=== PATIENT | male | born 1940 | race Caucasian/White ===

== ENCOUNTER → 2018-06-22 10:56 | Outpatient (CLI) | payer MEDICARE, SELFPAY ==
[2015-09-18 15:25] VITALS: BMI 30.3
[2018-06-22 12:34] LABS: Absolute Lymphocyte Count 1.27 X10^3/ul (0.83-4.51); Absolute Neutrophil Count 3.8 X10^3/uL (2.0-7.7); Basophil# 0.03 X10^3/uL; Basophil% 0.5 % (0-1); Eosinophil# 0.09 X10^3/uL; Eosinophils% 1.5 % (0-5); Hematocrit 41.9 % (40-54); Hemoglobin 14.2 g/dl (13.0-16.5); Lymphocyte # 1.27 X10^3/ul (4.0); Lymphocyte % 21.5 % (19-41); Mean Corp Hgb Conc 33.9 g/gl (32-36); Mean Corpuscular Hgb 34.5 pg (27.0-32.0); Mean Corpuscular Volume 101.7 fL (80-94); Monocyte# 0.68 X10^3/uL; Monocyte% 11.5 % (0-10); Neutrophil # 3.83 X10^3/uL (2.7-7.7); Neutrophil % 64.8 % (47-70); Platelet Count 232 K/mm3 (150-450); RBC Distribution Width CV 11.9 % (11.6-14.6); RBC Distribution Width SD 43.4 fl (35.1-43.9); Red Blood Count 4.12 M/mm3 (4.6-6.2); White Blood Count 5.9 K/mm3 (4.4-11.0)
[2018-06-22 12:43] LABS: POSITIVE COUNT NO; POSITIVE DIFFERENTIAL NO; POSITIVE MORPHOLOGY NO
[2018-06-22 13:07] LABS: Vitamin D,25 Hydroxy 37.4 ng/mL (29.95-100.01)
[2018-06-22 13:38] LABS: ALB/GLOB Ratio 0.9 RATIO (0.9-2.4); AST(SGOT) 21 U/L (15-37); Alanine Aminotransfer ALT/SGPT 38 U/L (16-61); Alkaline Phosphatase 100 U/L (45-117); Anion Gap 7 (5-15); BUN 18 mg/dL (7-18); BUN/Creat Ratio 15.9 RATIO (10-20); Calcium,Total 8.6 mg/dL (8.5-10.1); Chloride 106 mmol/L (98-107); Cholesterol 120 mg/dL (200); Creatinine, Serum 1.13 mg/dL (0.70-1.30); EST Glomerular Filtration Rate 66 mL/min (>60); Est Glom Filt Rate - Afr Amer 80 mL/min (>60); Globulin 3.5 g/dL (2.2-4.2); Glucose 94 mg/dL (74-106); High Density Lipoprotein 32 mg/dL; PSA,Total- Diagnostic 0.26 ng/mL (0.0-4.0); Potassium 4.8 mmol/L (3.5-5.1); Protein, Total 6.5 g/dL (6.4-8.2); Sodium Level 141 mmol/L (136-145); Triglycerides 141 mg/dL; Very Low Density Lipoprotein 28 mg/dL (5-40)
[2018-06-23 09:44] LABS: Vitamin B12 780 pg/mL (211-911)
== END ==
PROVIDERS: Family Provider Family Medicine; PCP Family Medicine; Referring Provider Family Medicine; Visit Provider Family Medicine
DX: C61 Malignant neoplasm of prostate (principal); I25.10 Atherosclerotic heart disease of native coronary artery without angina pectoris; E78.5 Hyperlipidemia, unspecified; G35 Multiple sclerosis; D75.89 Other specified diseases of blood and blood-forming organs
CPT/HCPCS: 36415; 80053; 80061; 82306; 82607; 82746; 84153; 85025

== ENCOUNTER → 2019-09-28 14:30 | Outpatient (CLI) | payer MEDICARE, SELFPAY ==
[2019-09-28 18:06] LABS: Absolute Lymphocyte Count 1.37 X10^3/uL (0.83-4.51); Absolute Neutrophil Count 3.6 X10^3/uL (2.0-7.7); Basophil# 0.02 X10^3/uL; Basophil% 0.3 % (0-1); Eosinophil# 0.12 X10^3/uL; Eosinophils% 2.1 % (0-5); Hematocrit 44.5 % (40-54); Hemoglobin 15.3 g/dL (13.0-16.5); Lymphocyte # 1.37 X10^3/ul (4.0); Lymphocyte % 23.9 % (19-41); Mean Corp Hgb Conc 34.4 g/dL (32-36); Mean Corpuscular Hgb 34.9 pg (27.0-32.0); Mean Corpuscular Volume 101.6 fL (80-94); Mean Platelet Vol. 11.8 fl (6.2-12.0); Monocyte# 0.67 X10^3/uL; Monocyte% 11.7 % (0-10); NRBC Flagged by Analyzer 0 % (0-5); Neutrophil # 3.55 X10^3/uL (2.7-7.7); Neutrophil % 61.8 % (47-70); Platelet Count 156 K/mm3 (150-450); RBC Distribution Width CV 11.9 % (11.6-14.6); RBC Distribution Width SD 44.5 fl (35.1-43.9); Red Blood Count 4.38 M/mm3 (4.6-6.2); White Blood Count 5.7 K/mm3 (4.4-11.0)
[2019-09-28 18:23] LABS: Vitamin B12 466 pg/mL (211-911)
[2019-09-28 18:34] LABS: AST(SGOT) 18 U/L (15-37); Alanine Aminotransfer ALT/SGPT 32 U/L (16-61); Albumin, Serum 3.5 g/dL (3.2-5.0); Alkaline Phosphatase 106 U/L (45-117); Anion Gap 7 (5-15); BUN 19 mg/dL (7-18); BUN/Creat Ratio 14.7 RATIO (10-20); Chloride 107 mmol/L (98-107); Cholesterol 126 mg/dL (200); Creatinine, Serum 1.29 mg/dL (0.70-1.30); EST Glomerular Filtration Rate 57 mL/min (>60); Est Glom Filt Rate - Afr Amer 69 mL/min (>60); Globulin 3.6 g/dL (2.2-4.2); Glucose 100 mg/dL (74-106); High Density Lipoprotein 29 mg/dL; PSA,Total- Diagnostic 0.17 ng/mL (0.0-4.0); Potassium 4.5 mmol/L (3.5-5.1); Protein, Total 7.1 g/dL (6.4-8.2); Sodium Level 142 mmol/L (136-145); Thyroid Stim Hormone (TSH) 3.49 uIU/mL (0.358-3.74); Triglycerides 267 mg/dL; Very Low Density Lipoprotein 53 mg/dL (5-40)
[2019-10-04 03:20] LABS: Vitamin B1, Thiamine 140.9 nmol/L (66.5-200.0)
== END ==
PROVIDERS: PCP Family Medicine; Referring Provider Family Medicine; Visit Provider Family Medicine
DX: I25.10 Atherosclerotic heart disease of native coronary artery without angina pectoris (principal); E78.5 Hyperlipidemia, unspecified; I10 Essential (primary) hypertension; G62.9 Polyneuropathy, unspecified; C61 Malignant neoplasm of prostate
CPT/HCPCS: 36415; 80053; 80061; 82607; 84153; 84425; 84443; 85025

== ENCOUNTER → 2019-10-19 14:29 | Outpatient (CLI) | payer MEDICARE, SELFPAY ==
[2015-09-18 15:25] VITALS: BMI 30.3
[2019-10-19 17:40] LABS: Anion Gap 6 (5-15); BUN 19 mg/dL (7-18); BUN/Creat Ratio 13.5 RATIO (10-20); Calcium,Total 8.5 mg/dL (8.5-10.1); Chloride 110 mmol/L (98-107); Creatinine, Serum 1.41 mg/dL (0.70-1.30); EST Glomerular Filtration Rate 51 mL/min (>60); Est Glom Filt Rate - Afr Amer 62 mL/min (>60); Glucose 126 mg/dL (74-106); Potassium 4.4 mmol/L (3.5-5.1); Sodium Level 143 mmol/L (136-145)
== END ==
PROVIDERS: PCP Family Medicine; Referring Provider Family Medicine; Visit Provider Family Medicine
DX: R94.4 Abnormal results of kidney function studies (principal)
CPT/HCPCS: 36415; 80048

== ENCOUNTER → 2020-04-23 08:19 | Outpatient (CLI) | payer MEDICARE, SELFPAY ==
[2020-04-23 10:13] LABS: Absolute Lymphocyte Count 1.13 X10^3/uL (0.83-4.51); Absolute Neutrophil Count 4.1 X10^3/uL (2.0-7.7); Basophil# 0.03 X10^3/uL; Basophil% 0.5 % (0-1); Eosinophil# 0.14 X10^3/uL; Eosinophils% 2.3 % (0-5); Hematocrit 43.5 % (40-54); Lymphocyte # 1.13 X10^3/ul (4.0); Lymphocyte % 18.5 % (19-41); Mean Corp Hgb Conc 34.5 g/dL (32-36); Mean Corpuscular Hgb 34.6 pg (27.0-32.0); Mean Corpuscular Volume 100.2 fL (80-94); Mean Platelet Vol. 10.9 fl (6.2-12.0); Monocyte# 0.72 X10^3/uL; Monocyte% 11.8 % (0-10); NRBC Flagged by Analyzer 0 % (0-5); Neutrophil # 4.08 X10^3/uL (2.7-7.7); Neutrophil % 66.6 % (47-70); Platelet Count 173 K/mm3 (150-450); RBC Distribution Width CV 12.3 % (11.6-14.6); RBC Distribution Width SD 46.1 fl (35.1-43.9); Red Blood Count 4.34 M/mm3 (4.6-6.2); White Blood Count 6.1 K/mm3 (4.4-11.0)
[2020-04-23 11:00] LABS: AST(SGOT) 19 U/L (15-37); Alanine Aminotransfer ALT/SGPT 30 U/L (16-61); Albumin, Serum 3.4 g/dL (3.2-5.0); Alkaline Phosphatase 104 U/L (45-117); Anion Gap 6 (5-15); BUN 20 mg/dL (7-18); BUN/Creat Ratio 12.4 RATIO (10-20); Calcium,Total 8.7 mg/dL (8.5-10.1); Chloride 108 mmol/L (98-107); Cholesterol 136 mg/dL (200); Creatinine, Serum 1.61 mg/dL (0.70-1.30); EST Glomerular Filtration Rate 44 mL/min (>60); Est Glom Filt Rate - Afr Amer 53 mL/min (>60); Globulin 3.5 g/dL (2.2-4.2); Glucose 141 mg/dL (74-106); High Density Lipoprotein 37 mg/dL; Potassium 4.5 mmol/L (3.5-5.1); Protein, Total 6.9 g/dL (6.4-8.2); Sodium Level 141 mmol/L (136-145); Triglycerides 154 mg/dL; Very Low Density Lipoprotein 31 mg/dL (5-40)
[2020-04-23 14:22] LABS: Hemoglobin A1c 6.4 % (3.8-5.6)
== END ==
PROVIDERS: PCP Family Medicine; Referring Provider Family Medicine; Visit Provider Family Medicine
DX: I25.10 Atherosclerotic heart disease of native coronary artery without angina pectoris (principal); R73.09 Other abnormal glucose
CPT/HCPCS: 36415; 80053; 80061; 83036; 85025

== ENCOUNTER → 2020-07-24 15:47 | Outpatient (CLI) | payer MEDICARE, SELFPAY ==
[2015-09-18 15:25] VITALS: BMI 30.3
[2020-07-24 17:57] LABS: Absolute Lymphocyte Count 1.26 X10^3/uL (0.83-4.51); Absolute Neutrophil Count 4.5 X10^3/uL (2.0-7.7); Basophil# 0.04 X10^3/uL; Basophil% 0.6 % (0-1); Eosinophil# 0.12 X10^3/uL; Eosinophils% 1.8 % (0-5); Hematocrit 46.4 % (40-54); Hemoglobin 15.5 g/dL (13.0-16.5); Lymphocyte # 1.26 X10^3/ul (0.83-4.51); Lymphocyte % 19.1 % (19-41); Mean Corp Hgb Conc 33.4 g/dL (32-36); Mean Corpuscular Volume 101.8 fL (80-94); Mean Platelet Vol. 11.3 fl (6.2-12.0); Monocyte# 0.71 X10^3/uL; Monocyte% 10.7 % (0-10); NRBC Flagged by Analyzer 0 % (0-5); Neutrophil # 4.45 X10^3/uL (2.7-7.7); Neutrophil % 67.3 % (47-70); Platelet Count 184 K/mm3 (150-450); RBC Distribution Width CV 12.7 % (11.6-14.6); RBC Distribution Width SD 47.3 fl (35.1-43.9); Red Blood Count 4.56 M/mm3 (4.6-6.2); White Blood Count 6.6 K/mm3 (4.4-11.0)
[2020-07-24 18:16] LABS: ALB/GLOB Ratio 0.9 RATIO (0.9-2.4); AST(SGOT) 18 U/L (15-37); Alanine Aminotransfer ALT/SGPT 30 U/L (16-61); Albumin, Serum 3.6 g/dL (3.2-5.0); Alkaline Phosphatase 123 U/L (45-117); Anion Gap 6 (5-15); BUN 20 mg/dL (7-18); BUN/Creat Ratio 12.9 RATIO (10-20); Calcium,Total 9.4 mg/dL (8.5-10.1); Chloride 106 mmol/L (98-107); Cholesterol 142 mg/dL (200); Creatinine, Serum 1.55 mg/dL (0.70-1.30); EST Glomerular Filtration Rate 46 mL/min (>60); Est Glom Filt Rate - Afr Amer 56 mL/min (>60); Globulin 3.8 g/dL (2.2-4.2); Glucose 112 mg/dL (74-106); High Density Lipoprotein 38 mg/dL; PSA,Total- Diagnostic 0.14 ng/mL (0.0-4.0); Phosphorus 3.4 mg/dL (2.5-4.9); Potassium 4.4 mmol/L (3.5-5.1); Protein, Total 7.4 g/dL (6.4-8.2); Sodium Level 138 mmol/L (136-145); Triglycerides 153 mg/dL; Very Low Density Lipoprotein 31 mg/dL (5-40)
[2020-07-25 08:24] LABS: PTHIN 49.6 pg/mL (18.4-80.1)
[2020-07-25 09:44] LABS: Hemoglobin A1c 6.1 % (3.8-5.6)
== END ==
PROVIDERS: PCP Family Medicine; Referring Provider Family Medicine; Visit Provider Family Medicine
DX: N18.30 Chronic kidney disease, stage 3 unspecified (principal); E78.5 Hyperlipidemia, unspecified; C61 Malignant neoplasm of prostate; R73.09 Other abnormal glucose
CPT/HCPCS: 36415; 80053; 80061; 83036; 83970; 84100; 84153; 85025

== ENCOUNTER → 2020-10-23 15:34 | Outpatient (CLI) | payer MEDICARE, SELFPAY ==
[2015-09-18 15:25] VITALS: BMI 30.3
[2020-10-23 18:14] LABS: Anion Gap 6 (5-15); BUN 18 mg/dL (7-18); BUN/Creat Ratio 11.9 RATIO (10-20); Calcium,Total 8.7 mg/dL (8.5-10.1); Chloride 111 mmol/L (98-107); Creatinine, Serum 1.51 mg/dL (0.70-1.30); EST Glomerular Filtration Rate 47 mL/min (>60); Est Glom Filt Rate - Afr Amer 57 mL/min (>60); Glucose 93 mg/dL (74-106); Potassium 4.1 mmol/L (3.5-5.1); Sodium Level 141 mmol/L (136-145)
== END ==
PROVIDERS: PCP Family Medicine; Referring Provider Family Medicine; Visit Provider Family Medicine
DX: N18.30 Chronic kidney disease, stage 3 unspecified (principal)
CPT/HCPCS: 36415; 80048

== ENCOUNTER → 2021-02-06 | Outpatient (CLI) | payer MEDICARE, SELFPAY | END | disposition home or self-care (01) | PROVIDERS: PCP Family Medicine; Visit Provider Family Medicine | DX: U07.1 COVID-19 (principal) | CPT/HCPCS: 87635; U0005; U0003 ==

== ENCOUNTER 2021-02-07 15:56 | Outpatient (CLI) | payer MEDICARE, SELFPAY ==
[2021-02-07] MEDS: 0.9% Saline Lock 10 ML Syringe IV (16:09)
[2021-02-07 16:14] VITALS: BP 149/76; PULSE 86; RESP 16; TEMP 36.8; O2SAT 96; BMI 31.4
[2021-02-07 17:11] VITALS: BP 157/85; PULSE 82; RESP 16; TEMP 36.8; O2SAT 94
[2021-02-07 18:13] VITALS: BP 148/84; PULSE 84; RESP 16; TEMP 36.8; O2SAT 95
== END 2021-02-07 18:14 | disposition home or self-care (01) ==
LOC: MS3OUT 15:56 → MS3 15:57
PROVIDERS: PCP Family Medicine; Referring Provider Nurse Practitioner Acute Care; Visit Provider Nurse Practitioner Acute Care
DX: Z23 Encounter for immunization (principal); U07.1 COVID-19
CPT/HCPCS: J7050; M0245; Q0245; A4216

== ENCOUNTER → 2021-02-26 08:49 | Outpatient (CLI) | payer MEDICARE, SELFPAY ==
[2021-02-26 08:54] LABS: Bacteria 0 SEEN /hpf (None Seen); Mucous, Urine 0 SEEN /hpf (<or=2+); White Blood Cells 0 SEEN /hpf (0-5)
[2021-02-26 09:57] LABS: Erythrocyte Sedimentation Rate 36 mm/hr (0-20)
[2021-02-26 10:25] LABS: ALB/GLOB Ratio 0.6 RATIO (0.9-2.4); AST(SGOT) 17 U/L (15-37); Alanine Aminotransfer ALT/SGPT 29 U/L (16-61); Albumin, Serum 2.7 g/dL (3.2-5.0); Alkaline Phosphatase 82 U/L (45-117); Anion Gap 6 (5-15); BUN 42 mg/dL (7-18); BUN/Creat Ratio 29.2 RATIO (10-20); CRP 9.18 mg/L (0.0-3.0); Calcium,Total 9.3 mg/dL (8.5-10.1); Chloride 105 mmol/L (98-107); Creatinine, Serum 1.44 mg/dL (0.70-1.30); EST Glomerular Filtration Rate 50 mL/min (>60); Est Glom Filt Rate - Afr Amer 60 mL/min (>60); Globulin 4.6 g/dL (2.2-4.2); Glucose 152 mg/dL (74-106); Protein, Total 7.3 g/dL (6.4-8.2); Sodium Level 137 mmol/L (136-145)
[2021-02-26 12:48] LABS: Color, Urine Yellow (Yellow); Glucose, Dipstick Normal (Normal); Ketone-Dipstick Negative (Negative); Leukocyte Esterase-Dipstick Negative /ul (Negative); Nitrite-Dipstick Negative (Negative); Occult Blood-Urine Negative /ul (Negative); Protein-Dipstick 15 mg/dl (Negative); Specific Gravity, Urine 1.015 (1.002-1.030); Urine Bilirubin Dipstick Negative (Negative); Urine Clarity Clear (Clear); Urine Urobilinogen Normal (Normal)
[2021-02-26 13:17] LABS: Red Blood Cells-Urine 0-5 SEEN /hpf (0-5)
[2021-02-26 13:18] LABS: Squamous Epithelial Cells - UA 0-5 SEEN /hpf (0-5)
[2021-02-28 08:09] LABS: Cytoplasmic Ab (C-ANCA) <1:20 titer (Neg:<1:20)
[2021-02-28 09:31] LABS: ANTINUCLEAR ANTIBODIES DIRECT Negative (Negative)
[2021-02-28 13:16] LABS: Perinuclear Ab (P-ANCA) <1:20 titer (Neg:<1:20)
== END ==
PROVIDERS: PCP Family Medicine; Referring Provider Family Medicine; Visit Provider Family Medicine
DX: I77.6 Arteritis, unspecified (principal); E78.5 Hyperlipidemia, unspecified
CPT/HCPCS: 36415; 80053; 81001; 83735; 85652; 86038; 86140; 86256

== ENCOUNTER → 2021-03-19 12:17 | Outpatient (CLI) | payer MEDICARE, SELFPAY ==
[2021-03-19 15:37] LABS: CRP 9.22 mg/L (0.0-3.0)
== END ==
PROVIDERS: PCP Family Medicine; Referring Provider Family Medicine; Visit Provider Family Medicine
DX: R79.82 Elevated C-reactive protein (CRP) (principal)
CPT/HCPCS: 36415; 86140

== ENCOUNTER → 2021-03-21 13:25 | Outpatient (CLI) | payer MEDICARE, SELFPAY ==
--- NOTE | 2021-03-21 13:31 | RAD_ITS ---
STUDY: X-RAY - LUMBAR SPINE REASON FOR EXAM: Male, 80 years old. Low back pain TECHNIQUE: 3 view(s) of the lumbar spine were obtained. COMPARISON: No recent studies FINDINGS: Normal lumbar lordosis. There is no substantial scoliosis. There is a normal alignment of the vertebrae. Normal vertebral bodies and endplates. There is multi-level degenerative disc disease with multi-level disc space narrowing. There is no demonstrated fracture. There is atherosclerotic calcification of the abdominal aorta without a demonstrated aneurysm. RAD/Lumbar Spine 2 or 3 Views IMPRESSION: Degenerative changes of the spine, as detailed above. Electronically Signed: Dimitrios Walker MD at 17:03 EST , Service support ,
== END ==
PROVIDERS: PCP Family Medicine; Referring Provider Anesthesiology Pain Medicine; Visit Provider Anesthesiology Pain Medicine
DX: M51.36 Other intervertebral disc degeneration, lumbar region (principal)
CPT/HCPCS: 72100

== ENCOUNTER 2021-04-28 13:09 | Outpatient (CLI) | payer MEDICARE, SELFPAY ==
--- NOTE | 2021-04-28 13:23 | MRI_ITS ---
STUDY: MRI LUMBAR SPINE WITHOUT CONTRAST REASON FOR EXAM: Male, 80 years old. BACK PAIN, rt leg weakness TECHNIQUE: Standardized fat and water weighted pulse sequences were obtained in the sagittal and axial planes. COMPARISON: None FINDINGS: Normal lumbar lordosis. There is no substantial scoliosis. Normal conus medullaris that terminates at the L1/L2. L1-2: There is moderate disc space narrowing and endplates spondylosis mild disc bulge and facet arthropathy. Decompression laminectomy. No significant central canal stenosis. Moderate right and moderate left foraminal stenosis. L2-3: There is moderate disc space narrowing and endplates spondylosis. Mild disc bulge and facet arthropathy. Decompression laminectomy. No significant central canal stenosis. Mild right and mild left foraminal stenosis. L3-4: There is mild disc space narrowing and endplates spondylosis. Mild disc bulge and moderate facet arthropathy without significant central canal stenosis. Mild right and mild left foraminal stenosis. Minimal grade 1 anterolisthesis. L4-5: There is mild disc space narrowing and endplates spondylosis mild disc bulge and moderate facet arthropathy without significant central canal stenosis. Minimal grade 1 anterolisthesis. Mild right and mild left foraminal stenosis. L5-S1: There is severe disc space narrowing and endplates spondylosis. Moderate disc osteophyte complex and facet arthropathy without significant central canal stenosis. Moderate right and moderate left foraminal stenosis. Normal visualized sacral ala. MRI/Spine Lumbar (Routine) IMPRESSION: Moderate multilevel degenerative changes. Decompression laminectomies. Electronically Signed: Ignacio Medrano MD at 14:04 EST Tel , Service support ,
== END 2021-04-28 23:59 | disposition short-term general hospital (02) ==
LOC: MRI 13:11
PROVIDERS: PCP Family Medicine; Visit Provider Anesthesiology Pain Medicine
DX: M54.16 Radiculopathy, lumbar region (principal)
CPT/HCPCS: 72148

== ENCOUNTER 2021-05-09 11:18 | Outpatient (CLI) | payer MEDICARE, SELFPAY ==
[2021-05-09 12:19] LABS: Absolute Lymphocyte Count 1.42 X10^3/uL (0.83-4.51); Absolute Neutrophil Count 4.7 X10^3/uL (2.0-7.7); Basophil# 0.05 X10^3/uL; Basophil% 0.7 % (0-1); Eosinophil# 0.11 X10^3/uL; Eosinophils% 1.6 % (0-5); Hematocrit 42.2 % (40-54); Hemoglobin 14.8 g/dL (13.0-16.5); Lymphocyte # 1.42 X10^3/ul (0.83-4.51); Lymphocyte % 20.1 % (19-41); Mean Corp Hgb Conc 35.1 g/dL (32-36); Mean Corpuscular Hgb 34.8 pg (27.0-32.0); Mean Corpuscular Volume 99.3 fL (80-94); Mean Platelet Vol. 10.8 fl (6.2-12.0); Monocyte# 0.74 X10^3/uL; Monocyte% 10.5 % (0-10); NRBC Flagged by Analyzer 0 % (0-5); Neutrophil # 4.73 X10^3/uL (2.7-7.7); Neutrophil % 66.8 % (47-70); Platelet Count 181 K/mm3 (150-450); RBC Distribution Width CV 12.8 % (11.6-14.6); RBC Distribution Width SD 46.5 fl (35.1-43.9); Red Blood Count 4.25 M/mm3 (4.6-6.2); White Blood Count 7.1 K/mm3 (4.4-11.0)
[2021-05-09 12:42] LABS: Hemoglobin A1c 6.3 % (3.8-5.6)
[2021-05-09 12:45] LABS: PTHIN 72.4 pg/mL (18.4-80.1)
[2021-05-09 12:52] LABS: ALB/GLOB Ratio 0.9 RATIO (0.9-2.4); AST(SGOT) 16 U/L (15-37); Alanine Aminotransfer ALT/SGPT 26 U/L (16-61); Albumin, Serum 3.3 g/dL (3.2-5.0); Alkaline Phosphatase 108 U/L (45-117); Anion Gap 3 (5-15); BUN 23 mg/dL (7-18); BUN/Creat Ratio 16.1 RATIO (10-20); Chloride 107 mmol/L (98-107); Cholesterol 122 mg/dL (200); Creatinine, Serum 1.43 mg/dL (0.70-1.30); EST Glomerular Filtration Rate 50 mL/min (>60); Est Glom Filt Rate - Afr Amer 61 mL/min (>60); Globulin 3.8 g/dL (2.2-4.2); Glucose 135 mg/dL (74-106); High Density Lipoprotein 30 mg/dL; Magnesium 2.4 mg/dL (1.6-2.6); PSA,Total- Diagnostic 0.15 ng/mL (0.0-4.0); Phosphorus 2.4 mg/dL (2.5-4.9); Potassium 4.4 mmol/L (3.5-5.1); Protein, Total 7.1 g/dL (6.4-8.2); Sodium Level 141 mmol/L (136-145); Triglycerides 295 mg/dL; Very Low Density Lipoprotein 59 mg/dL (5-40)
== END 2021-05-09 23:59 | disposition short-term general hospital (02) ==
LOC: MFPLAB 11:20
PROVIDERS: PCP Family Medicine; Referring Provider Family Medicine; Visit Provider Family Medicine
DX: I25.10 Atherosclerotic heart disease of native coronary artery without angina pectoris (principal); C61 Malignant neoplasm of prostate; N18.30 Chronic kidney disease, stage 3 unspecified; R73.09 Other abnormal glucose; E83.42 Hypomagnesemia
CPT/HCPCS: 36415; 80053; 80061; 83036; 83735; 83970; 84100; 84153; 85025

== ENCOUNTER 2021-07-14 12:35 | Outpatient (CLI) | payer MEDICARE, SELFPAY ==
[2021-07-14 13:58] LABS: Amphetamine Urine VISTA NEGATIVE (<1000 ng/mL); Barbiturate Urine VISTA NEGATIVE (< 200 ng/mL); Benzodiazepine Urine VISTA NEGATIVE (< 200 ng/mL); Cocaine Urine VISTA NEGATIVE (< 300 ng/mL); Ecstacy Urine VISTA NEGATIVE (< 500 ng/mL); Methadone Urine VISTA NEGATIVE (< 300 ng/mL); PCP Urine VISTA NEGATIVE (< 25 ng/mL); THC Urine VISTA NEGATIVE (< 50 ng/mL); Vista UDS pH Range 5
== END 2021-07-14 23:59 | disposition home or self-care (01) ==
PROVIDERS: PCP Family Medicine; Visit Provider Anesthesiology Pain Medicine
DX: F11.20 Opioid dependence, uncomplicated (principal)
CPT/HCPCS: 80307

== ENCOUNTER → 2021-08-08 | Outpatient (CLI) | payer MEDICARE, SELFPAY ==
[2021-08-08 17:37] LABS: Absolute Neutrophil Count 3.9 X10^3/uL (2.0-7.7); Basophil# 0.04 X10^3/uL; Basophil% 0.7 % (0-1); Eosinophil# 0.12 X10^3/uL; Hematocrit 43.7 % (40-54); Hemoglobin 15.5 g/dL (13.0-16.5); Lymphocyte % 21.2 % (19-41); Mean Corp Hgb Conc 35.5 g/dL (32-36); Mean Corpuscular Hgb 34.8 pg (27.0-32.0); Mean Corpuscular Volume 98.2 fL (80-94); Mean Platelet Vol. 10.9 fl (6.2-12.0); Monocyte# 0.73 X10^3/uL; Monocyte% 11.9 % (0-10); NRBC Flagged by Analyzer 0 % (0-5); Neutrophil # 3.92 X10^3/uL (2.7-7.7); Neutrophil % 63.7 % (47-70); Platelet Count 169 K/mm3 (150-450); RBC Distribution Width CV 12.9 % (11.6-14.6); RBC Distribution Width SD 45.8 fl (35.1-43.9); Red Blood Count 4.45 M/mm3 (4.6-6.2); White Blood Count 6.1 K/mm3 (4.4-11.0)
[2021-08-08 17:43] LABS: Vitamin D,25 Hydroxy 22.8 ng/mL
[2021-08-08 17:54] LABS: AST(SGOT) 20 U/L (15-37); Alanine Aminotransfer ALT/SGPT 27 U/L (16-61); Albumin, Serum 3.4 g/dL (3.2-5.0); Alkaline Phosphatase 87 U/L (45-117); Anion Gap 6 (5-15); BUN 21 mg/dL (7-18); BUN/Creat Ratio 15.2 RATIO (10-20); Calcium,Total 8.6 mg/dL (8.5-10.1); Chloride 106 mmol/L (98-107); Cholesterol 181 mg/dL (200); Creatinine, Serum 1.38 mg/dL (0.70-1.30); EST Glomerular Filtration Rate 52 mL/min (>60); Est Glom Filt Rate - Afr Amer 63 mL/min (>60); Globulin 3.4 g/dL (2.2-4.2); Glucose 162 mg/dL (74-106); High Density Lipoprotein 34 mg/dL; Magnesium 1.7 mg/dL (1.6-2.6); Phosphorus 2.3 mg/dL (2.5-4.9); Potassium 4.3 mmol/L (3.5-5.1); Protein, Total 6.8 g/dL (6.4-8.2); Sodium Level 139 mmol/L (136-145); Thyroid Stim Hormone (TSH) 3.15 uIU/mL (0.358-3.74); Triglycerides 400 mg/dL
[2021-08-08 17:57] LABS: Hemoglobin A1c 6.4 % (3.8-5.6)
[2021-08-11 09:23] LABS: PTHIN 69.8 pg/mL (18.4-80.1)
== END | disposition home or self-care (01) ==
LOC: MFPLAB 14:00
PROVIDERS: PCP Family Medicine; Referring Provider Family Medicine; Visit Provider Family Medicine
DX: I12.9 Hypertensive chronic kidney disease with stage 1 through stage 4 chronic kidney disease, or unspecified chronic kidney disease (principal); N18.30 Chronic kidney disease, stage 3 unspecified; R73.02 Impaired glucose tolerance (oral); E83.42 Hypomagnesemia
CPT/HCPCS: 36415; 80053; 80061; 82306; 83036; 83735; 83970; 84100; 84443; 85025

== ENCOUNTER → 2022-01-09 | Outpatient (CLI) | payer MEDICARE, SELFPAY ==
--- NOTE | 2022-01-09 15:20 | RAD_ITS ---
EXAM: XR LEFT SHOULDER COMPLETE, 2 OR MORE VIEWS CLINICAL INDICATION: SHOULDER PAIN TECHNIQUE: Two or more views of the left shoulder. This report was created using [employer] report generation technology. COMPARISON: None. FINDINGS: BONES/JOINTS: Mild degenerative changes of the acromioclavicular joint. No acute fracture. No subluxation. Normal alignment. No sclerotic or destructive changes observed. SOFT TISSUES: Unremarkable. No soft tissue swelling or gas. No radiopaque foreign body. RAD/Shoulder min 2 Views IMPRESSION: Mild degenerative changes of the acromioclavicular joint. Electronically Signed: Alexandr Armstrong MD at 1:21 EDT ,
--- NOTE | 2022-01-09 16:35 | RAD_ITS ---
EXAM: XR RIGHT ELBOW COMPLETE, 3 OR MORE VIEWS CLINICAL INDICATION: PAIN TECHNIQUE: Frontal, lateral and oblique views of the right elbow. This report was created using [employer] report generation technology. COMPARISON: None. FINDINGS: BONES/JOINTS: There are degenerative changes with narrowing of the medial elbow joint. There are small osteophytes present. There is no displacement of the anterior or posterior fat pads. No acute fracture. No subluxation. Normal alignment. No destructive or sclerotic lesions. SOFT TISSUES: Unremarkable. No soft tissue swelling or gas. No radiopaque foreign body. RAD/Elbow min 3 Views IMPRESSION: Degenerative changes with joint space narrowing and osteophyte formation. There is no acute osseous abnormality. Electronically Signed: Jakob Lewis MD at 17:08 EDT ,
== END | disposition home or self-care (01) ==
PROVIDERS: PCP Family Medicine; Referring Provider Anesthesiology Pain Medicine; Visit Provider Anesthesiology Pain Medicine
DX: S59.901A Unspecified injury of right elbow, initial encounter (principal)
CPT/HCPCS: 73030; 73080

== ENCOUNTER → 2022-02-19 | Outpatient (CLI) | payer MEDICARE, SELFPAY ==
[2022-02-19 18:12] LABS: Absolute Lymphocyte Count 1.49 X10^3/uL (0.83-4.51); Absolute Neutrophil Count 3.6 X10^3/uL (2.0-7.7); Basophil# 0.04 X10^3/uL; Basophil% 0.6 % (0-1); Eosinophil# 0.15 X10^3/uL; Eosinophils% 2.4 % (0-5); Hematocrit 45.4 % (40-54); Hemoglobin 15.3 g/dL (13.0-16.5); Lymphocyte # 1.49 X10^3/ul (0.83-4.51); Mean Corp Hgb Conc 33.7 g/dL (32-36); Mean Corpuscular Hgb 34.2 pg (27.0-32.0); Mean Corpuscular Volume 101.6 fL (80-94); Mean Platelet Vol. 11.8 fl (6.2-12.0); Monocyte# 0.88 X10^3/uL; Monocyte% 14.2 % (0-10); NRBC Flagged by Analyzer 0 % (0-5); Neutrophil # 3.62 X10^3/uL (2.7-7.7); Neutrophil % 58.5 % (47-70); Platelet Count 212 K/mm3 (150-450); RBC Distribution Width CV 12.3 % (11.6-14.6); RBC Distribution Width SD 46.1 fl (35.1-43.9); Red Blood Count 4.47 M/mm3 (4.6-6.2); White Blood Count 6.2 K/mm3 (4.4-11.0)
[2022-02-19 18:41] LABS: ALB/GLOB Ratio 0.9 RATIO (0.9-2.4); AST(SGOT) 20 U/L (15-37); Alanine Aminotransfer ALT/SGPT 41 U/L (16-61); Albumin, Serum 3.4 g/dL (3.2-5.0); Alkaline Phosphatase 107 U/L (45-117); Anion Gap 7 (5-15); BUN 20 mg/dL (7-18); BUN/Creat Ratio 13.5 RATIO (10-20); Calcium,Total 9.4 mg/dL (8.5-10.1); Chloride 105 mmol/L (98-107); Cholesterol 154 mg/dL (200); Creatinine, Serum 1.48 mg/dL (0.70-1.30); EST Glomerular Filtration Rate 48 mL/min (>60); Est Glom Filt Rate - Afr Amer 58 mL/min (>60); Globulin 3.6 g/dL (2.2-4.2); Glucose 120 mg/dL (74-106); High Density Lipoprotein 35 mg/dL; Potassium 4.6 mmol/L (3.5-5.1); Sodium Level 141 mmol/L (136-145); Triglycerides 267 mg/dL; Uric Acid 9.2 mg/dL (3.5-7.2); Very Low Density Lipoprotein 53 mg/dL (5-40)
[2022-02-19 19:11] LABS: Hemoglobin A1c 7.2 % (3.8-5.6)
== END | disposition home or self-care (01) ==
LOC: MFPLAB 14:59
PROVIDERS: PCP Family Medicine; Referring Provider Family Medicine; Visit Provider Family Medicine
DX: E11.65 Type 2 diabetes mellitus with hyperglycemia (principal); M10.9 Gout, unspecified
CPT/HCPCS: 36415; 80053; 80061; 83036; 84550; 85025

== ENCOUNTER 2022-03-04 16:54 | Outpatient (CLI) | payer MEDICARE, SELFPAY | END 2022-03-04 23:59 | disposition home or self-care (01) | LOC: LABSPEC 16:55 | PROVIDERS: PCP Family Medicine; Visit Provider Family Medicine | DX: N39.0 Urinary tract infection, site not specified (principal) | CPT/HCPCS: 87077; 87086; 87088; 87186 ==

== ENCOUNTER → 2022-05-12 | Outpatient (CLI) | payer MEDICARE, SELFPAY ==
[2022-05-12 18:24] LABS: Absolute Lymphocyte Count 1.33 X10^3/uL (0.83-4.51); Absolute Neutrophil Count 6.3 X10^3/uL (2.0-7.7); Basophil# 0.02 X10^3/uL; Basophil% 0.2 % (0-1); Eosinophil# 0.05 X10^3/uL; Eosinophils% 0.6 % (0-5); Hematocrit 44.9 % (40-54); Hemoglobin 15.4 g/dL (13.0-16.5); Lymphocyte # 1.33 X10^3/ul (0.83-4.51); Lymphocyte % 15.7 % (19-41); Mean Corp Hgb Conc 34.3 g/dL (32-36); Mean Corpuscular Hgb 34.6 pg (27.0-32.0); Mean Corpuscular Volume 100.9 fL (80-94); Mean Platelet Vol. 11.8 fl (6.2-12.0); Monocyte# 0.75 X10^3/uL; Monocyte% 8.8 % (0-10); NRBC Flagged by Analyzer 0 % (0-5); Neutrophil # 6.31 X10^3/uL (2.7-7.7); Neutrophil % 74.3 % (47-70); Platelet Count 158 K/mm3 (150-450); RBC Distribution Width CV 13.3 % (11.6-14.6); Red Blood Count 4.45 M/mm3 (4.6-6.2); White Blood Count 8.5 K/mm3 (4.4-11.0)
[2022-05-12 18:46] LABS: ALB/GLOB Ratio 0.9 RATIO (0.9-2.4); AST(SGOT) 12 U/L (15-37); Alanine Aminotransfer ALT/SGPT 23 U/L (16-61); Albumin, Serum 3.4 g/dL (3.2-5.0); Alkaline Phosphatase 104 U/L (45-117); Anion Gap 8 (5-15); BUN 33 mg/dL (7-18); BUN/Creat Ratio 22.4 RATIO (10-20); Calcium,Total 9.3 mg/dL (8.5-10.1); Chloride 108 mmol/L (98-107); Cholesterol 181 mg/dL (200); Creatinine, Serum 1.47 mg/dL (0.70-1.30); EST Glomerular Filtration Rate 49 mL/min (>60); Est Glom Filt Rate - Afr Amer 59 mL/min (>60); Globulin 3.6 g/dL (2.2-4.2); Glucose 167 mg/dL (74-106); High Density Lipoprotein 46 mg/dL; Phosphorus 3.4 mg/dL (2.5-4.9); Sodium Level 142 mmol/L (136-145); Thyroid Stim Hormone (TSH) 1.98 uIU/mL (0.358-3.74); Triglycerides 140 mg/dL; Uric Acid 7.3 mg/dL (3.5-7.2); Very Low Density Lipoprotein 28 mg/dL (5-40)
[2022-05-12 19:30] LABS: Hemoglobin A1c 6.2 % (3.8-5.6)
[2022-05-13 09:41] LABS: PTHIN 41.2 pg/mL (18.4-80.1)
== END | disposition home or self-care (01) ==
LOC: MFPLAB 15:33
PROVIDERS: PCP Family Medicine; Referring Provider Family Medicine; Visit Provider Family Medicine
DX: I12.9 Hypertensive chronic kidney disease with stage 1 through stage 4 chronic kidney disease, or unspecified chronic kidney disease (principal); N18.30 Chronic kidney disease, stage 3 unspecified; R73.02 Impaired glucose tolerance (oral); E83.42 Hypomagnesemia; E79.0 Hyperuricemia without signs of inflammatory arthritis and tophaceous disease
CPT/HCPCS: 36415; 80053; 80061; 82306; 83036; 83735; 83970; 84100; 84443; 84550; 85025

== ENCOUNTER 2022-07-07 06:29 | Day surgery (SDC) | payer MEDICARE, SELFPAY ==
[2022-07-06 11:55] VITALS: BMI 31.4
[2022-07-07 06:44] LABS: Hematocrit 44.7 % (40-54); Hemoglobin 15.7 g/dL (13.0-16.5); Mean Corp Hgb Conc 35.1 g/dL (32-36); Mean Corpuscular Hgb 34.9 pg (27.0-32.0); Mean Corpuscular Volume 99.3 fL (80-94); Mean Platelet Vol. 10.3 fl (6.2-12.0); Platelet Count 176 K/mm3 (150-450); RBC Distribution Width CV 12.9 % (11.6-14.6); RBC Distribution Width SD 46.9 fl (35.1-43.9); White Blood Count 7.5 K/mm3 (4.4-11.0)
[2022-07-07 06:59] LABS: Anion Gap 5 (5-15); BUN 21 mg/dL (7-18); BUN/Creat Ratio 16.8 RATIO (10-20); Calcium,Total 9.1 mg/dL (8.5-10.1); Chloride 108 mmol/L (98-107); Creatinine, Serum 1.25 mg/dL (0.70-1.30); EST Glomerular Filtration Rate 59 mL/min (>60); Est Glom Filt Rate - Afr Amer 71 mL/min (>60); Estimated Creatinine Clearance 47.69 ml/min; Glucose 137 mg/dL (74-106); Potassium 4.1 mmol/L (3.5-5.1); Sodium Level 140 mmol/L (136-145)
--- NOTE | 2022-07-07 08:03 | HP.PCM_ITS ---
HPI - General HPI Narrative SAL VARGAS, is a 81 M who presents with history of unprovoked DVT, on Eliquis indefinitely. Has had recent falls and there is concern of risk for serious bleeding if continues on anticoagulation. [facility] Medical History History of heart attack Hx of blood clots Internal impingement of left shoulder Left shoulder pain Olecranon bursitis, right elbow Home Medications multivitamin,il-uolx-xmyravsv 27 mg-0.4 mg tablet (Therems-M) 1 tab PO DAILY 11/14/14 [History Last Taken 09/18/15 04:00] atorvastatin 40 mg tablet 40 mg PO QHS 06/06/15 [History Last Taken Unknown] nitroglycerin 400 mcg/spray translingual 0.4 mg sublingual PRN PRN CHEST PAIN 06/06/15 [History Last Taken Unknown] apixaban 5 mg tablet (Eliquis) 5 mg PO BID 02/07/21 [History Last Taken Unknown] allopurinol 100 mg tablet 100 mg PO DAILY 03/13/22 [History Last Taken Unknown] acetaminophen 500 mg tablet (Tylenol Extra Strength) 500 mg PO Q6H PRN Pain 03/20/22 [History Last Taken Unknown] amoxicillin 500 mg capsule 500 mg PO BID 04/22/22 [History Last Taken Unknown] tramadol 100 mg tablet,extended release 24 hr 100 mg PO DAILY PRN Pain 04/22/22 [History Last Taken Unknown] Allergy/AdvReac Type Severity Reaction Status Date / Time IVP DYE Allergy Rash Uncoded 06/12/22 15:01 Surgical History History of lumbar laminectomy Hx of elbow surgery Social History Smoking Status: Never smoker Vital Signs Vital Signs Vital Signs: Weight Weight: 225 lb Body Mass Index (BMI) 31.4 Physical Exam Const alert, oriented x3, no apparent distress and healthy appearing General Appearance: cooperative; Negative for combative or lethargic Orientation / Consciousness: awake Exam Limitations: no limitations HEENT Head and Scalp: normocephalic and atraumatic Eyes EOMs intact bilaterally General Eye: normal appearance of both eyes Neck full ROM General: trachea midline Resp normal respiratory effort and no use of accessory muscles Effort and Inspection: Negative for labored, stridor or audible wheezes Cardio regular rate and regular rhythm Back/Spine Cervical Spine: cervical ROM normal Extremity full ROM and normal capillary refill Skin no rashes or lesions noted and no wounds Neuro oriented x3, CN's II-XII intact bilaterally, no focal motor deficits and no sensory deficits noted Psych thought process normal, cooperative, affect normal, speech normal and activity/motor behavior normal Results Lab / Micro Data Result Diagrams: 07/07/22 06:35 07/07/22 06:35 Labs: Laboratory Results - last 24 hr 07/07/22 06:35: WBC 7.5, RBC 4.50 L, Hgb 15.7, Hct 44.7, MCV 99.3 H, MCH 34.9 H, MCHC 35.1, RDW Std Deviation 46.9 H, RDW Coeff of Minh 12.9, Plt Count 176, MPV 10.3 07/07/22 06:35: Sodium 140, Potassium 4.1, Chloride 108 H, Carbon Dioxide 27.0, Anion Gap 5, BUN 21 H, Creatinine 1.25, Estim Creat Clear Calc 47.69, Est GFR (MDRD) Af Amer 71, Est GFR (MDRD) Non-Af 59 L, BUN/Creatinine Ratio 16.8, Glucose 137 H, Calcium 9.1 Assessment & Plan Assessment/Plan (1) History of venous thromboembolism: PLAN: -plan venogram to assess for anatomic cause for DVT -if normal or mild compression then filter, if severe compression stent
--- NOTE | 2022-07-07 09:06 | OP.PCM_ITS ---
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 He has had frequent recent falls with concern for bleeding complications should he have any significant fall. He presents now for venogram with intravascular ultrasound to assess for any anatomic contributing factors to his DVT history, and if not to place an IVC filter. Description of procedure: Upon obtaining form consent and verification correct patient procedure site patient was taken to the Nursing Officer where he was positioned prepped and draped in usual sterile fashion. Timeout was then performed conscious sedation administered with Versed and fentanyl. Skin overlying the right common femoral vein was anesthetized 1% lidocaine and the vessel accessed under ultrasound guidance in retrograde fashion with a micropuncture needle and wire. This was then exchanged for micropuncture sheath through which a Bentson wire was advanced into the inferior vena cava. The micropuncture was then exchanged out for a short 8 [place] sheath through which an intravascular ultra sound probe was advanced into the inferior vena cava and a recorded pullback performed of the inferior vena cava, right common iliac, right external iliac veins. We then navigated to the contralateral iliac system with a Bentson wire and performed a separate recorded pullback of the left external and common iliac veins. No significant compression was identified in the vena cava was patent with no evidence of thrombus. The renal veins were marked based on the IVUS imaging, and the 8 [place] sheath exchanged out for a Bard Baxter IVC filter placement sheath. This was then advanced into position at the lowest renal vein and the IVC filter advanced in the position and deployed. The sheath was then withdrawn and manual pressure held for 5 minutes after which satisfactory stasis was noted. Patient was then taken to the recovery room anticipated discharged home after bedrest was completed.
== END 2022-07-07 12:00 | disposition home or self-care (01) ==
PROVIDERS: PCP Family Medicine; Referring Provider Surgery Trauma Surgery; Visit Provider Surgery Trauma Surgery
DX: Z86.718 Personal history of other venous thrombosis and embolism (principal); Z79.01 Long term (current) use of anticoagulants; I25.2 Old myocardial infarction; R29.6 Repeated falls
CPT/HCPCS: 36415; 37191; 37238; 37252; 37253; 76937; 80048; 85027; 99152; 99153; C1753; C1769; J7040; C1880; C1894

== ENCOUNTER → 2022-08-14 | Outpatient (CLI) | payer MEDICARE, SELFPAY ==
--- NOTE | 2022-08-14 09:40 | VDLE_ITS ---
Reason For Study: RLE SWELLING RIGHT LEFT RT DEIV, CFV, FV, POP V, PTV, PERV are CFV is compressible, spontaneous, phasic, DILATED AND NONCOMPRESSIBLE. competent, and demonstrates normal augmentation. RT GSV IS DILATED & NONCOMPRESSIBLE AT GROIN TO PROX THIGH. PROX THIGH TO ANKLE is COMPRESSIBLE. Procedure This is a venous duplex using B-mode, color flow and spectral Doppler. Exam performed in department. The study was technically difficult. RLE is SWOLLEN & RED BELOW THE KNEE. A preliminary report was called and/or faxed to DR. HODGE@ 10:20 AM @ [phone]. VL/Venous Duplex US, Unilateral Interpretation Summary Acute deep vein thrombosis is noted in the right external iliac vein, common fe moral vein, femoral vein, popliteal vein, posterior tibial vein, peroneal vein. Acute superficial vein thrombosis noted in the right great saphenous vein Ordering Physician: Annika Loin Referring Physician: Karlos Ramos Performed By: Angelica Israel, RDCS, RVT
== END | disposition home or self-care (01) ==
LOC: CVS 09:39
PROVIDERS: PCP Family Medicine; Referring Provider Physician Assistant; Visit Provider Physician Assistant
DX: I82.409 Acute embolism and thrombosis of unspecified deep veins of unspecified lower extremity (principal); Z95.828 Presence of other vascular implants and grafts; M79.89 Other specified soft tissue disorders
CPT/HCPCS: 93971

== ENCOUNTER → 2022-10-30 | Outpatient (CLI) | payer MEDICARE, SELFPAY ==
[2022-10-30 17:36] LABS: Absolute Lymphocyte Count 1.37 X10^3/uL (0.83-4.51); Absolute Neutrophil Count 3.5 X10^3/uL (2.0-7.7); Basophil# 0.04 X10^3/uL; Basophil% 0.7 % (0-1); Eosinophil# 0.16 X10^3/uL; Eosinophils% 2.8 % (0-5); Hematocrit 43.1 % (40-54); Hemoglobin 14.6 g/dL (13.0-16.5); Lymphocyte # 1.37 X10^3/ul (0.83-4.51); Lymphocyte % 24.2 % (19-41); Mean Corp Hgb Conc 33.9 g/dL (32-36); Mean Corpuscular Hgb 34.4 pg (27.0-32.0); Mean Corpuscular Volume 101.4 fL (80-94); Mean Platelet Vol. 10.9 fl (6.2-12.0); Monocyte# 0.59 X10^3/uL; Monocyte% 10.4 % (0-10); NRBC Flagged by Analyzer 0 % (0-5); Neutrophil # 3.46 X10^3/uL (2.7-7.7); Neutrophil % 61.4 % (47-70); Platelet Count 163 K/mm3 (150-450); RBC Distribution Width CV 12.5 % (11.6-14.6); RBC Distribution Width SD 46.6 fl (35.1-43.9); Red Blood Count 4.25 M/mm3 (4.6-6.2); White Blood Count 5.7 K/mm3 (4.4-11.0)
[2022-10-30 18:06] LABS: AST(SGOT) 12 U/L (15-37); Alanine Aminotransfer ALT/SGPT 21 U/L (16-61); Albumin, Serum 3.4 g/dL (3.2-5.0); Alkaline Phosphatase 93 U/L (45-117); Anion Gap 5 (5-15); BUN 18 mg/dL (7-18); BUN/Creat Ratio 13.5 RATIO (10-20); Calcium,Total 8.7 mg/dL (8.5-10.1); Chloride 111 mmol/L (98-107); Cholesterol 185 mg/dL (200); Creatinine, Serum 1.33 mg/dL (0.70-1.30); EST Glomerular Filtration Rate 54 mL/min (>60); Est Glom Filt Rate - Afr Amer 66 mL/min (>60); Globulin 3.3 g/dL (2.2-4.2); Glucose 106 mg/dL (74-106); High Density Lipoprotein 35 mg/dL; PSA,Total- Diagnostic 0.12 ng/mL (0.0-4.0); Phosphorus 3.2 mg/dL (2.5-4.9); Potassium 4.1 mmol/L (3.5-5.1); Protein, Total 6.7 g/dL (6.4-8.2); Sodium Level 142 mmol/L (136-145); Thyroid Stim Hormone (TSH) 3.37 uIU/mL (0.358-3.74); Triglycerides 150 mg/dL; Uric Acid 8.8 mg/dL (3.5-7.2); Very Low Density Lipoprotein 30 mg/dL (5-40)
[2022-10-30 18:33] LABS: Vitamin D,25 Hydroxy 28.1 ng/mL
[2022-10-30 18:53] LABS: Hemoglobin A1c 6.2 % (3.8-5.6)
== END | disposition home or self-care (01) ==
LOC: MFPLAB 16:51
PROVIDERS: PCP Family Medicine; Visit Provider Family Medicine
DX: I25.10 Atherosclerotic heart disease of native coronary artery without angina pectoris (principal); C61 Malignant neoplasm of prostate; N18.30 Chronic kidney disease, stage 3 unspecified; R73.02 Impaired glucose tolerance (oral); I12.9 Hypertensive chronic kidney disease with stage 1 through stage 4 chronic kidney disease, or unspecified chronic kidney disease
CPT/HCPCS: 36415; 80053; 80061; 82306; 83036; 83970; 84100; 84153; 84443; 84550; 85025

== ENCOUNTER → 2022-12-15 | Outpatient (CLI) | payer MEDICARE, SELFPAY ==
[2022-12-15 18:29] LABS: Anion Gap 6 (5-15); BUN 21 mg/dL (7-18); BUN/Creat Ratio 15.6 RATIO (10-20); Calcium,Total 9.1 mg/dL (8.5-10.1); Chloride 108 mmol/L (98-107); Creatinine, Serum 1.35 mg/dL (0.70-1.30); EST Glomerular Filtration Rate 54 mL/min (>60); Est Glom Filt Rate - Afr Amer 65 mL/min (>60); Glucose 116 mg/dL (74-106); Potassium 3.7 mmol/L (3.5-5.1); Sodium Level 142 mmol/L (136-145)
== END | disposition home or self-care (01) ==
LOC: MFPLAB 16:41
PROVIDERS: PCP Family Medicine; Visit Provider Family Medicine
DX: N18.30 Chronic kidney disease, stage 3 unspecified (principal)
CPT/HCPCS: 36415; 80048

== ENCOUNTER → 2023-01-29 | Outpatient (CLI) | payer MEDICARE, SELFPAY ==
[2023-01-29 17:38] LABS: Absolute Lymphocyte Count 1.61 X10^3/uL (0.83-4.51); Absolute Neutrophil Count 3.8 X10^3/uL (2.0-7.7); Basophil# 0.04 X10^3/uL; Basophil% 0.6 % (0-1); Eosinophil# 0.19 X10^3/uL; Hematocrit 40.7 % (40-54); Lymphocyte # 1.61 X10^3/ul (0.83-4.51); Lymphocyte % 25.1 % (19-41); Mean Corp Hgb Conc 34.4 g/dL (32-36); Mean Corpuscular Volume 101.8 fL (80-94); Mean Platelet Vol. 11.1 fl (6.2-12.0); Monocyte# 0.76 X10^3/uL; Monocyte% 11.8 % (0-10); NRBC Flagged by Analyzer 0 % (0-5); Neutrophil # 3.79 X10^3/uL (2.7-7.7); Platelet Count 177 K/mm3 (150-450); RBC Distribution Width SD 48.7 fl (35.1-43.9); White Blood Count 6.4 K/mm3 (4.4-11.0)
[2023-01-29 18:07] LABS: Vitamin D,25 Hydroxy 30.4 ng/mL
[2023-01-29 18:10] LABS: Hemoglobin A1c 6.7 % (3.8-5.6)
[2023-01-29 18:26] LABS: ALB/GLOB Ratio 0.9 RATIO (0.9-2.4); AST(SGOT) 14 U/L (15-37); Alanine Aminotransfer ALT/SGPT 34 U/L (16-61); Albumin, Serum 3.3 g/dL (3.2-5.0); Alkaline Phosphatase 101 U/L (45-117); Anion Gap 7 (5-15); BUN 27 mg/dL (7-18); BUN/Creat Ratio 18.4 RATIO (10-20); Calcium,Total 8.8 mg/dL (8.5-10.1); Chloride 107 mmol/L (98-107); Cholesterol 124 mg/dL (200); Creatinine, Serum 1.47 mg/dL (0.70-1.30); EST Glomerular Filtration Rate 49 mL/min (>60); Est Glom Filt Rate - Afr Amer 59 mL/min (>60); Globulin 3.7 g/dL (2.2-4.2); Glucose 216 mg/dL (74-106); High Density Lipoprotein 30 mg/dL; Potassium 3.9 mmol/L (3.5-5.1); Sodium Level 141 mmol/L (136-145); Triglycerides 322 mg/dL; Very Low Density Lipoprotein 64 mg/dL (5-40)
[2023-02-01 08:07] LABS: PTHIN 53.5 pg/mL (18.4-80.1)
== END | disposition home or self-care (01) ==
LOC: MFPLAB 16:24
PROVIDERS: PCP Family Medicine; Visit Provider Family Medicine
DX: E83.42 Hypomagnesemia (principal); N18.30 Chronic kidney disease, stage 3 unspecified; R73.02 Impaired glucose tolerance (oral); I12.9 Hypertensive chronic kidney disease with stage 1 through stage 4 chronic kidney disease, or unspecified chronic kidney disease
CPT/HCPCS: 36415; 80053; 80061; 82306; 83036; 83735; 83970; 84443; 85025

== ENCOUNTER → 2023-06-03 | Outpatient (CLI) | payer OTHER, SELFPAY ==
[2023-06-03 14:31] LABS: Absolute Lymphocyte Count 1.51 X10^3/uL (0.83-4.51); Absolute Neutrophil Count 3.6 X10^3/uL (2.0-7.7); Basophil# 0.04 X10^3/uL; Basophil% 0.7 % (0-1); Eosinophil# 0.15 X10^3/uL; Eosinophils% 2.5 % (0-5); Hemoglobin 13.8 g/dL (13.0-16.5); Lymphocyte # 1.51 X10^3/ul (0.83-4.51); Lymphocyte % 24.8 % (19-41); Mean Corp Hgb Conc 34.5 g/dL (32-36); Mean Corpuscular Hgb 33.7 pg (27.0-32.0); Mean Corpuscular Volume 97.8 fL (80-94); Mean Platelet Vol. 10.7 fl (6.2-12.0); Monocyte# 0.74 X10^3/uL; Monocyte% 12.2 % (0-10); NRBC Flagged by Analyzer 0 % (0-5); Neutrophil # 3.62 X10^3/uL (2.7-7.7); Neutrophil % 59.3 % (47-70); Platelet Count 194 K/mm3 (150-450); RBC Distribution Width CV 12.6 % (11.6-14.6); RBC Distribution Width SD 44.8 fl (35.1-43.9); Red Blood Count 4.09 M/mm3 (4.6-6.2); White Blood Count 6.1 K/mm3 (4.4-11.0)
[2023-06-03 14:56] LABS: PTHIN 37.2 pg/mL (18.4-80.1)
[2023-06-03 15:07] LABS: ALB/GLOB Ratio 0.8 RATIO (0.9-2.4); AST(SGOT) 20 U/L (15-37); Alanine Aminotransfer ALT/SGPT 26 U/L (16-61); Albumin, Serum 3.1 g/dL (3.2-5.0); Alkaline Phosphatase 110 U/L (45-117); Anion Gap 5 (5-15); BUN 22 mg/dL (7-18); BUN/Creat Ratio 14.8 RATIO (10-20); Calcium,Total 9.4 mg/dL (8.5-10.1); Chloride 108 mmol/L (98-107); Cholesterol 181 mg/dL (200); Creatinine, Serum 1.49 mg/dL (0.70-1.30); EST Glomerular Filtration Rate 48 mL/min (>60); Est Glom Filt Rate - Afr Amer 58 mL/min (>60); Globulin 3.7 g/dL (2.2-4.2); Glucose 253 mg/dL (74-106); High Density Lipoprotein 31 mg/dL; Magnesium 1.7 mg/dL (1.6-2.6); Potassium 3.8 mmol/L (3.5-5.1); Protein, Total 6.8 g/dL (6.4-8.2); Sodium Level 139 mmol/L (136-145); Thyroid Stim Hormone (TSH) 3.55 uIU/mL (0.358-3.74); Triglycerides 240 mg/dL; Very Low Density Lipoprotein 48 mg/dL (5-40)
[2023-06-03 15:35] LABS: Hemoglobin A1c 7.8 % (3.8-5.6)
== END | disposition home or self-care (01) ==
LOC: MFPLAB 13:56
PROVIDERS: PCP Family Medicine; Visit Provider Family Medicine
DX: C61 Malignant neoplasm of prostate (principal); E11.22 Type 2 diabetes mellitus with diabetic chronic kidney disease; N18.30 Chronic kidney disease, stage 3 unspecified; I12.9 Hypertensive chronic kidney disease with stage 1 through stage 4 chronic kidney disease, or unspecified chronic kidney disease
CPT/HCPCS: 36415; 80053; 80061; 83036; 83735; 83970; 84100; 84153; 84443; 85025

== ENCOUNTER → 2023-09-02 | Outpatient (CLI) | payer OTHER, SELFPAY ==
[2023-09-02 15:29] LABS: Absolute Lymphocyte Count 1.24 X10^3/uL (0.83-4.51); Basophil# 0.04 X10^3/uL; Basophil% 0.7 % (0-1); Eosinophil# 0.09 X10^3/uL; Eosinophils% 1.5 % (0-5); Hematocrit 45.1 % (40-54); Hemoglobin 15.5 g/dL (13.0-16.5); Lymphocyte # 1.24 X10^3/ul (0.83-4.51); Lymphocyte % 20.8 % (19-41); Mean Corp Hgb Conc 34.4 g/dL (32-36); Mean Corpuscular Hgb 34.2 pg (27.0-32.0); Mean Corpuscular Volume 99.6 fL (80-94); Mean Platelet Vol. 10.7 fl (6.2-12.0); Monocyte# 0.62 X10^3/uL; Monocyte% 10.4 % (0-10); NRBC Flagged by Analyzer 0 % (0-5); Neutrophil # 3.95 X10^3/uL (2.7-7.7); Neutrophil % 66.3 % (47-70); Platelet Count 182 K/mm3 (150-450); RBC Distribution Width CV 12.8 % (11.6-14.6); RBC Distribution Width SD 46.1 fl (35.1-43.9); Red Blood Count 4.53 M/mm3 (4.6-6.2)
[2023-09-02 16:12] LABS: ALB/GLOB Ratio 0.9 RATIO (0.9-2.4); AST(SGOT) 30 U/L (15-37); Alanine Aminotransfer ALT/SGPT 33 U/L (16-61); Albumin, Serum 3.5 g/dL (3.2-5.0); Alkaline Phosphatase 104 U/L (45-117); Anion Gap 5 (5-15); BUN 22 mg/dL (7-18); BUN/Creat Ratio 16.8 RATIO (10-20); Calcium,Total 9.5 mg/dL (8.5-10.1); Chloride 108 mmol/L (98-107); Cholesterol 146 mg/dL (200); Creatinine, Serum 1.31 mg/dL (0.70-1.30); EST Glomerular Filtration Rate 55 mL/min (>60); Est Glom Filt Rate - Afr Amer 67 mL/min (>60); Globulin 3.9 g/dL (2.2-4.2); Glucose 132 mg/dL (74-106); High Density Lipoprotein 35 mg/dL; Phosphorus 3.5 mg/dL (2.5-4.9); Potassium 4.7 mmol/L (3.5-5.1); Protein, Total 7.4 g/dL (6.4-8.2); Sodium Level 140 mmol/L (136-145); Thyroid Stim Hormone (TSH) 4.52 uIU/mL (0.358-3.74); Triglycerides 204 mg/dL; Very Low Density Lipoprotein 41 mg/dL (5-40)
[2023-09-02 16:20] LABS: PTHIN 56.9 pg/mL (18.4-80.1)
[2023-09-02 16:23] LABS: Vitamin D,25 Hydroxy 45.8 ng/mL
[2023-09-02 17:18] LABS: Hemoglobin A1c 7.4 % (3.8-5.6)
[2023-09-03 12:11] LABS: T4 Free Direct 1.06 ng/dL (0.76-1.46)
[2023-09-07 17:07] LABS: Thyroglobulin Antibody < 1.0 IU/mL (0.0-0.9); Thyroid Peroxidase AB < 9 IU/mL (0-34)
== END | disposition home or self-care (01) ==
LOC: MFPLAB 14:15
PROVIDERS: PCP Family Medicine; Visit Provider Family Medicine
DX: I12.9 Hypertensive chronic kidney disease with stage 1 through stage 4 chronic kidney disease, or unspecified chronic kidney disease (principal); E11.22 Type 2 diabetes mellitus with diabetic chronic kidney disease; N18.30 Chronic kidney disease, stage 3 unspecified; R79.89 Other specified abnormal findings of blood chemistry
CPT/HCPCS: 80053; 80061; 82306; 83036; 83970; 84100; 84439; 84443; 85025; 86376; 86800

== ENCOUNTER → 2024-01-04 | Outpatient (CLI) | payer OTHER, SELFPAY ==
[2024-01-04 17:42] LABS: Absolute Lymphocyte Count 1.63 X10^3/uL (0.83-4.51); Absolute Neutrophil Count 4.1 X10^3/uL (2.0-7.7); Basophil# 0.04 X10^3/uL; Basophil% 0.6 % (0-1); Eosinophil# 0.13 X10^3/uL; Hematocrit 44.2 % (40-54); Hemoglobin 15.1 g/dL (13.0-16.5); Lymphocyte # 1.63 X10^3/ul (0.83-4.51); Lymphocyte % 24.7 % (19-41); Mean Corp Hgb Conc 34.2 g/dL (32-36); Mean Corpuscular Hgb 33.3 pg (27.0-32.0); Mean Corpuscular Volume 97.6 fL (80-94); Mean Platelet Vol. 11.6 fl (6.2-12.0); Monocyte% 10.6 % (0-10); NRBC Flagged by Analyzer 0 % (0-5); Neutrophil # 4.09 X10^3/uL (2.7-7.7); Neutrophil % 61.8 % (47-70); Platelet Count 170 K/mm3 (150-450); RBC Distribution Width CV 12.9 % (11.6-14.6); RBC Distribution Width SD 45.9 fl (35.1-43.9); Red Blood Count 4.53 M/mm3 (4.6-6.2); White Blood Count 6.6 K/mm3 (4.4-11.0)
[2024-01-04 18:40] LABS: ALB/GLOB Ratio 0.9 RATIO (0.9-2.4); AST(SGOT) 27 U/L (15-37); Alanine Aminotransfer ALT/SGPT 32 U/L (16-61); Albumin, Serum 3.5 g/dL (3.2-5.0); Alkaline Phosphatase 107 U/L (45-117); Anion Gap 6 (5-15); BUN 20 mg/dL (7-18); BUN/Creat Ratio 14.9 RATIO (10-20); Calcium,Total 9.1 mg/dL (8.5-10.1); Chloride 108 mmol/L (98-107); Cholesterol 118 mg/dL (200); Creatinine, Serum 1.34 mg/dL (0.70-1.30); EST Glomerular Filtration Rate 54 mL/min (>60); Est Glom Filt Rate - Afr Amer 65 mL/min (>60); Globulin 3.8 g/dL (2.2-4.2); Glucose 174 mg/dL (74-106); High Density Lipoprotein 33 mg/dL; Potassium 4.1 mmol/L (3.5-5.1); Protein, Total 7.3 g/dL (6.4-8.2); Sodium Level 139 mmol/L (136-145); Triglycerides 284 mg/dL; Very Low Density Lipoprotein 57 mg/dL (5-40)
[2024-01-04 18:48] LABS: PTHIN 80.8 pg/mL (18.4-80.1)
[2024-01-04 18:55] LABS: Vitamin B12 624 pg/mL (211-911); Vitamin D,25 Hydroxy 55.6 ng/mL
[2024-01-04 19:08] LABS: Hemoglobin A1c 7.8 % (3.8-5.6)
[2024-01-09 17:07] LABS: VITAMIN B6 21.2 ug/L (3.4-65.2)
== END | disposition home or self-care (01) ==
LOC: MFPLAB 14:55
PROVIDERS: PCP Family Medicine; Visit Provider Family Medicine
DX: E11.22 Type 2 diabetes mellitus with diabetic chronic kidney disease (principal); E11.42 Type 2 diabetes mellitus with diabetic polyneuropathy; N18.30 Chronic kidney disease, stage 3 unspecified
CPT/HCPCS: 80053; 80061; 82306; 82607; 83036; 83970; 84100; 84207; 84425; 85025

== ENCOUNTER → 2024-01-05 | Outpatient (CLI) | payer OTHER, SELFPAY ==
[2024-01-05 16:48] LABS: Bacteria 0 SEEN /hpf (None Seen); Mucous, Urine 0 SEEN /hpf (<or=2+); Red Blood Cells-Urine 0 SEEN /hpf (0-5); Squamous Epithelial Cells - UA 0 SEEN /hpf (0-5); White Blood Cells 0 SEEN /hpf (0-5)
[2024-01-05 18:03] LABS: Color, Urine Yellow (Yellow); Glucose, Dipstick 1000 mg/dl (Normal); Ketone-Dipstick Negative (Negative); Leukocyte Esterase-Dipstick 25 /ul (Negative); Nitrite-Dipstick Negative (Negative); Occult Blood-Urine 25 /ul (Negative); Protein-Dipstick 30 mg/dl (Negative); Specific Gravity, Urine 1.015 (1.002-1.030); Urine Bilirubin Dipstick Negative (Negative); Urine Clarity Sl. Cloudy (Clear); Urine Urobilinogen Normal (Normal)
[2024-01-05 18:24] LABS: Amorphous Sediment 1+
[2024-01-05 18:30] LABS: Protein, Urine (Random) 37.7 mg/dL (<11.9); Protein:Creat Ratio 377 mg/g CRE (0-200)
== END | disposition home or self-care (01) ==
LOC: MFPLAB 16:46
PROVIDERS: PCP Family Medicine; Visit Provider Family Medicine
DX: E11.22 Type 2 diabetes mellitus with diabetic chronic kidney disease (principal); N18.30 Chronic kidney disease, stage 3 unspecified
CPT/HCPCS: 81001; 82043; 82570; 84156

== ENCOUNTER → 2024-01-26 | Outpatient (CLI) | payer MEDICARE, SELFPAY ==
[2024-01-26 17:53] LABS: Anion Gap 7 (5-15); BUN 19 mg/dL (7-18); BUN/Creat Ratio 13.3 RATIO (10-20); Chloride 106 mmol/L (98-107); Creatinine, Serum 1.43 mg/dL (0.70-1.30); EST Glomerular Filtration Rate 50 mL/min (>60); Est Glom Filt Rate - Afr Amer 60 mL/min (>60); Glucose 131 mg/dL (74-106); Sodium Level 139 mmol/L (136-145)
== END | disposition home or self-care (01) ==
LOC: MTRAD 15:54 → MTLAB 15:55
PROVIDERS: PCP Family Medicine; Referring Provider Family Medicine; Visit Provider Family Medicine
DX: N18.30 Chronic kidney disease, stage 3 unspecified (principal)
CPT/HCPCS: 36415; 80048

== ENCOUNTER → 2024-04-06 | Outpatient (CLI) | payer MEDICARE, SELFPAY ==
[2024-04-06 17:44] LABS: Absolute Lymphocyte Count 1.58 X10^3/uL (0.83-4.51); Basophil# 0.04 X10^3/uL; Basophil% 0.6 % (0-1); Eosinophil# 0.13 X10^3/uL; Hematocrit 41.2 % (40-54); Hemoglobin 14.3 g/dL (13.0-16.5); Lymphocyte # 1.58 X10^3/ul (0.83-4.51); Lymphocyte % 24.7 % (19-41); Mean Corp Hgb Conc 34.7 g/dL (32-36); Mean Corpuscular Hgb 34.9 pg (27.0-32.0); Mean Corpuscular Volume 100.5 fL (80-94); Mean Platelet Vol. 11.4 fl (6.2-12.0); Monocyte# 0.64 X10^3/uL; NRBC Flagged by Analyzer 0 % (0-5); Neutrophil # 3.99 X10^3/uL (2.7-7.7); Neutrophil % 62.4 % (47-70); Platelet Count 140 K/mm3 (150-450); RBC Distribution Width CV 13.4 % (11.6-14.6); RBC Distribution Width SD 49.5 fl (35.1-43.9); White Blood Count 6.4 K/mm3 (4.4-11.0)
[2024-04-06 18:06] LABS: PTHIN 78.9 pg/mL (18.4-80.1)
[2024-04-06 18:10] LABS: Vitamin D,25 Hydroxy 82.7 ng/mL
[2024-04-06 18:14] LABS: Hemoglobin A1c 6.4 % (3.8-5.6)
[2024-04-06 18:21] LABS: AST(SGOT) 29 U/L (15-37); Alanine Aminotransfer ALT/SGPT 33 U/L (16-61); Albumin, Serum 3.4 g/dL (3.2-5.0); Alkaline Phosphatase 93 U/L (45-117); Anion Gap 8 (5-15); BUN 19 mg/dL (7-18); Calcium,Total 8.9 mg/dL (8.5-10.1); Chloride 107 mmol/L (98-107); Cholesterol 108 mg/dL (200); Creatinine, Serum 1.36 mg/dL (0.70-1.30); EST Glomerular Filtration Rate 53 mL/min (>60); Est Glom Filt Rate - Afr Amer 64 mL/min (>60); Globulin 3.4 g/dL (2.2-4.2); Glucose 154 mg/dL (74-106); High Density Lipoprotein 35 mg/dL; Magnesium 2.6 mg/dL (1.6-2.6); Phosphorus 2.3 mg/dL (2.5-4.9); Potassium 3.5 mmol/L (3.5-5.1); Protein, Total 6.8 g/dL (6.4-8.2); Sodium Level 140 mmol/L (136-145); Triglycerides 196 mg/dL; Uric Acid 6.4 mg/dL (3.5-7.2); Very Low Density Lipoprotein 39 mg/dL (5-40)
== END | disposition home or self-care (01) ==
LOC: MFPLAB 14:55
PROVIDERS: PCP Family Medicine; Referring Provider Family Medicine; Visit Provider Family Medicine
DX: E11.22 Type 2 diabetes mellitus with diabetic chronic kidney disease (principal); N18.30 Chronic kidney disease, stage 3 unspecified; I25.10 Atherosclerotic heart disease of native coronary artery without angina pectoris; E79.0 Hyperuricemia without signs of inflammatory arthritis and tophaceous disease
CPT/HCPCS: 36415; 80053; 80061; 82306; 83036; 83735; 83970; 84100; 84550; 85025

== ENCOUNTER → 2024-08-01 | Outpatient (CLI) | payer MEDICARE, SELFPAY ==
[2024-08-01 14:16] LABS: Bacteria 0 SEEN /hpf (None Seen)
[2024-08-01 18:29] LABS: Absolute Lymphocyte Count 1.67 X10^3/uL (0.83-4.51); Absolute Neutrophil Count 4.6 X10^3/uL (2.0-7.7); Basophil# 0.05 X10^3/uL; Basophil% 0.7 % (0-1); Eosinophil# 0.12 X10^3/uL; Eosinophils% 1.6 % (0-5); Hemoglobin 15.1 g/dL (13.0-16.5); Lymphocyte # 1.67 X10^3/ul (0.83-4.51); Lymphocyte % 22.8 % (19-41); Mean Corpuscular Hgb 35.2 pg (27.0-32.0); Mean Corpuscular Volume 97.9 fL (80-94); Mean Platelet Vol. 11.4 fl (6.2-12.0); Monocyte# 0.81 X10^3/uL; Monocyte% 11.1 % (0-10); NRBC Flagged by Analyzer 0 % (0-5); Neutrophil # 4.64 X10^3/uL (2.7-7.7); Neutrophil % 63.4 % (47-70); Platelet Count 164 K/mm3 (150-450); RBC Distribution Width CV 12.7 % (11.6-14.6); RBC Distribution Width SD 45.2 fl (35.1-43.9); Red Blood Count 4.29 M/mm3 (4.6-6.2); White Blood Count 7.3 K/mm3 (4.4-11.0)
[2024-08-01 18:31] LABS: Color, Urine Yellow (Yellow); Glucose, Dipstick 1000 mg/dl (Normal); Ketone-Dipstick Negative (Negative); Leukocyte Esterase-Dipstick 100 /ul (Negative); Nitrite-Dipstick Negative (Negative); Occult Blood-Urine Negative /ul (Negative); Protein-Dipstick 30 mg/dl (Negative); Specific Gravity, Urine 1.015 (1.002-1.030); Urine Bilirubin Dipstick Negative (Negative); Urine Clarity Clear (Clear); Urine Urobilinogen Normal (Normal)
[2024-08-01 18:33] LABS: PTHIN 47 pg/mL (11-61)
[2024-08-01 18:34] LABS: Microalbumin,Random Urine 30.1 mg/L (NO RANGE EST.); Microalbumin:Creatinine Ratio 323.3 mg/g CRE
[2024-08-01 18:58] LABS: ALB/GLOB Ratio 1.2 RATIO (0.9-2.4); AST(SGOT) 21 U/L (<=37); Alanine Aminotransfer ALT/SGPT 18 U/L (<=46); Alkaline Phosphatase 101 U/L (40-129); Anion Gap 14 (5-15); BUN 27 mg/dL (4-19); BUN/Creat Ratio 18.6 RATIO (10-20); Calcium,Total 9.5 mg/dL (7.6-11.0); Carbon Dioxide 23.4 mmol/L (21.0-32.0); Chloride 104 mmol/L (98-108); Cholesterol 123 mg/dL (<=200); Creatinine, Serum 1.45 mg/dL (0.70-1.20); EST Glomerular Filtration Rate 47 (>60); Globulin 3.2 g/dL (2.2-4.2); Glucose 161 mg/dL (70-99); High Density Lipoprotein 29 mg/dL; Low Density Lipoprotein Calc. 46 mg/dL; PSA,Total- Diagnostic 0.15 ng/mL (0.00-4.00); Phosphorus 3.5 mg/dL (2.7-4.5); Potassium 3.9 mmol/L (3.3-5.1); Protein, Total 7.1 g/dL (5.9-8.4); Sodium Level 141 mmol/L (133-145); Triglycerides 243 mg/dL; Very Low Density Lipoprotein 49 mg/dL (5-40); Vitamin D,25 Hydroxy 68.7 ng/mL (30-100); cholesterol:hdl ratio screen 4.27
[2024-08-01 19:11] LABS: Hemoglobin A1c 7.7 % (<=5.6)
[2024-08-01 19:24] LABS: White Blood Cells 25-50 SEEN /hpf (0-5)
[2024-08-01 19:25] LABS: Squamous Epithelial Cells - UA 0-5 SEEN /hpf (0-5)
[2024-08-01 19:26] LABS: Mucous, Urine RARE /hpf (<or=2+); Red Blood Cells-Urine 0-5 SEEN /hpf (0-5)
== END | disposition home or self-care (01) ==
LOC: MFPLAB 14:11
PROVIDERS: PCP Family Medicine; Referring Provider Family Medicine; Visit Provider Family Medicine
DX: E03.8 Other specified hypothyroidism (principal); C61 Malignant neoplasm of prostate; E11.22 Type 2 diabetes mellitus with diabetic chronic kidney disease; E11.69 Type 2 diabetes mellitus with other specified complication; N18.30 Chronic kidney disease, stage 3 unspecified; E55.9 Vitamin D deficiency, unspecified
CPT/HCPCS: 80053; 80061; 81001; 82043; 82306; 82570; 83036; 83970; 84100; 84153; 84439; 84443; 85025

== ENCOUNTER → 2024-09-20 | Outpatient (CLI) | payer MEDICARE, SELFPAY ==
[2024-09-20 19:05] LABS: Anion Gap 16 (5-15); BUN 31 mg/dL (4-19); BUN/Creat Ratio 21.8 RATIO (10-20); Calcium,Total 9.3 mg/dL (7.6-11.0); Carbon Dioxide 22.7 mmol/L (21.0-32.0); Chloride 102 mmol/L (98-108); Creatinine, Serum 1.42 mg/dL (0.70-1.20); EST Glomerular Filtration Rate 48 (>60); Glucose 171 mg/dL (70-99); Potassium 3.9 mmol/L (3.3-5.1); Sodium Level 141 mmol/L (133-145)
== END | disposition home or self-care (01) ==
PROVIDERS: PCP Family Medicine; Visit Provider Nurse Practitioner Family
DX: N18.9 Chronic kidney disease, unspecified (principal)
CPT/HCPCS: 36415; 80048

== ENCOUNTER → 2024-12-01 | Outpatient (CLI) | payer MEDICARE, SELFPAY ==
[2024-12-01 17:43] LABS: Hematocrit 44.3 % (40-54); Hemoglobin 15.3 g/dL (13.0-16.5); Immature Granulocytes Count 0.010 X10^3/uL (0.0-0.0); Mean Corp Hgb Conc 34.5 g/dL (32-36); Mean Corpuscular Volume 100.7 fL (80-94); Mean Platelet Vol. 11.0 fl (6.2-12.0); NRBC Flagged by Analyzer 0 % (0-5); Platelet Count 181 K/mm3 (150-450); RBC Distribution Width CV 12.8 % (11.6-14.6); RBC Distribution Width SD 47.7 fl (35.1-43.9); Red Blood Count 4.40 M/mm3 (4.6-6.2); White Blood Count 6.1 K/mm3 (4.4-11.0)
[2024-12-01 18:33] LABS: Creatinine, Urine (random) 111.00 mg/dL (39.00-259.00); Microalbumin,Random Urine 59.6 mg/L (<20 mg/L); Protein, Urine (Random) 23.4 mg/dL (0.0-12.0); Protein:Creat Ratio 211 mg/g CRE (0-200)
[2024-12-01 18:35] LABS: PTHIN 55 pg/mL (11-61)
[2024-12-01 18:56] LABS: AST(SGOT) 19 U/L (<=37); Alanine Aminotransfer ALT/SGPT 16 U/L (<=46); Albumin, Serum 4.0 g/dL (3.4-4.8); Alkaline Phosphatase 112 U/L (40-129); Anion Gap 15 (5-15); BUN 24 mg/dL (4-19); BUN/Creat Ratio 16.9 RATIO (10-20); Calcium,Total 9.6 mg/dL (7.6-11.0); Carbon Dioxide 26.6 mmol/L (21.0-32.0); Chloride 101 mmol/L (98-108); Cholesterol 118 mg/dL (<=200); Globulin 3.2 g/dL (2.2-4.2); Glucose 147 mg/dL (70-99); Low Density Lipoprotein Calc. 51 mg/dL; Potassium 4.4 mmol/L (3.3-5.1); Triglycerides 165 mg/dL; Very Low Density Lipoprotein 33 mg/dL (5-40); Vitamin B12 696 pg/mL (180-914); Vitamin D,25 Hydroxy 81.5 ng/mL (30-100); cholesterol:hdl ratio screen 3.49
== END | disposition home or self-care (01) ==
LOC: MFPLAB 14:25
PROVIDERS: PCP Family Medicine; Referring Provider Family Medicine; Visit Provider Family Medicine
DX: E11.22 Type 2 diabetes mellitus with diabetic chronic kidney disease (principal); N18.30 Chronic kidney disease, stage 3 unspecified; I25.10 Atherosclerotic heart disease of native coronary artery without angina pectoris; R53.83 Other fatigue; E03.8 Other specified hypothyroidism
CPT/HCPCS: 36415; 80053; 80061; 82043; 82306; 82570; 82607; 83036; 83970; 84156; 84439; 84443; 85025